=== PATIENT | female | born 1985 | race African-American/Black ===

== ENCOUNTER 2016-12-12 11:18 | Emergency (ER) | payer OTHER ==
[2016-12-12 11:44] VITALS: BP 129/81
== END 2016-12-12 13:05 | disposition left against medical advice (07) ==
LOC: ER 11:18
DX: Z53.21 Procedure and treatment not carried out due to patient leaving prior to being seen by health care provider (principal)

== ENCOUNTER 2017-03-21 12:48 | Emergency (ER) | payer OTHER ==
[2017-03-21 12:55] VITALS: BP 127/61
--- NOTE | 2017-03-21 13:11 | ER Document Report ---
ED Medical Screen (RME) - General Chief Complaint: Vaginal Discharge Stated Complaint: WEAK,ABDOMINAL PAIN Time Seen by Provider: 03/21/17 13:09 Mode of Arrival: Ambulatory Information source: Patient TRAVEL OUTSIDE OF THE [place] IN LAST 30 DAYS: No - HPI Patient complains to provider of: weak, vaginal d/c Onset: Yesterday - pt with c/o weakness, dysuria and vaginal d/c for the past 2 days. - Related Data Allergies/Adverse Reactions: Cat/Feline Product Derivatives * [Cat/Feline Product Derivatives] Allergy ( Severe, Verified 03/21/17 12:51) Respiratory distress grass pollen-orchard grass, standard [grass pollen-orchard grass,std] Allergy ( Severe, Verified 03/21/17 12:51) Respiratory distress tree nut [Tree Nut] Allergy (Severe, Verified 03/21/17 12:51) Respiratory distress No Known Drug Allergies Allergy (Verified 03/21/17 12:51) dogs Allergy (Severe, Uncoded 03/21/17 12:51) Respiratory distress pecan trees Allergy (Severe, Uncoded 03/21/17 12:51) Respiratory distress Past Medical History - Social History Frequency of alcohol use: Occasional Drug Abuse: None Pulmonary Medical History: Reports: Hx Asthma Renal/ Medical History: Denies: Hx Peritoneal Dialysis Past Surgical History: Reports: Hx Orthopedic Surgery - left knee x2 - Immunizations Hx Diphtheria, Pertussis, Tetanus Vaccination: Yes Physical Exam - Vital signs Vitals: Temp Pulse Resp BP Pulse Ox 98.2 F 82 20 127/61 H 100 03/21/17 12:54 03/21/17 12:54 03/21/17 12:54 03/21/17 12:54 03/21/17 12:54 Course - Vital Signs Vital signs: Temp Pulse Resp BP Pulse Ox 98.2 F 82 20 127/61 H 100 03/21/17 12:54 03/21/17 12:54 03/21/17 12:54 03/21/17 12:54 03/21/17 12:54
[2017-03-21 14:07] LABS: APPEARANCE,URINE SLIGHTLY-CLOUDY; BILIRUBIN,URINE NEGATIVE (NEGATIVE); COLOR,URINE YELLOW; GLUCOSE, URINE NEGATIVE (NEGATIVE); KETONES,URINE NEGATIVE (NEGATIVE); LEUKOCYTE ESTERASE,URINE LARGE (NEGATIVE); NITRITE,URINE NEGATIVE (NEGATIVE); PROTEIN,URINE NEGATIVE (NEGATIVE); URINE SPECIFIC GRAVITY 1.023; UROBILINOGEN,URINE NEGATIVE mg/dL (<2.0)
[2017-03-21 14:37] LABS: ABSOLUTE BASOPHILS # (AUTO) 0.1 10^3/uL (0.0-0.2); ABSOLUTE EOSINOPHILS # (AUTO) 0.3 10^3/uL (0.0-0.6); ABSOLUTE LYMPHOCYTES (AUTO) 2.6 10^3/uL (0.5-4.7); ABSOLUTE MONOCYTES (AUTO) 0.5 10^3/uL (0.1-1.4); ABSOLUTE NEUT (AUTO) 7.9 10^3/uL (1.7-8.2); BASOPHILS % (AUTO) 0.8 % (0-2); EOSINOPHILS % (AUTO) 2.4 % (0-6); HEMATOCRIT 37.7 % (36.0-47.0); HEMOGLOBIN 12.4 g/dL (12.0-15.5); LYMPHOCYTES % (AUTO) 22.9 % (13-45); MEAN CORPUSCULAR HEMOGLOBIN 26.1 pg (27.0-33.4); MEAN CORPUSCULAR HGB CONC 32.8 g/dL (32.0-36.0); MEAN CORPUSCULAR VOLUME 80 fl (80-97); MONOCYTES % (AUTO) 4.5 % (3-13); PLATELET COUNT 340 10^3/uL (150-450); RED BLOOD COUNT 4.73 10^6/uL (3.72-5.28); RED CELL DISTRIBUTION WIDTH 15.1 % (11.5-14.0); SEGMENTED NEUTROPHILS % (AUTO) 69.4 % (42-78); TOTAL CELLS COUNTED % (AUTO) 100 %; WHITE BLOOD COUNT 11.4 10^3/uL (4.0-10.5)
--- NOTE | 2017-03-21 14:40 | ER Document Report ---
ED GI/ - General Chief Complaint: Vaginal Discharge Stated Complaint: WEAK,ABDOMINAL PAIN Time Seen by Provider: 03/21/17 13:09 Mode of Arrival: Ambulatory Notes: Patient says she has been feeling weak for the past couple of days. Has noted some vaginal irritation and itching today which is comfortable. Denies any symptoms typical of a UTI such as burning or frequency or blood in the urine. Does not get a lot of urine infections. Denies any nausea or vomiting or diarrhea. Denies any fever. LMP 2-1/2-3 months ago. Has a control implant. No abdominal surgeries. Not on any [facility] prescription medications, such as for hypertension or diabetes. TRAVEL OUTSIDE OF THE [place] IN LAST 30 DAYS: No - Related Data Allergies/Adverse Reactions: Cat/Feline Product Derivatives * [Cat/Feline Product Derivatives] Allergy ( Severe, Verified 03/21/17 12:51) Respiratory distress grass pollen-orchard grass, standard [grass pollen-orchard grass,std] Allergy ( Severe, Verified 03/21/17 12:51) Respiratory distress tree nut [Tree Nut] Allergy (Severe, Verified 03/21/17 12:51) Respiratory distress No Known Drug Allergies Allergy (Verified 03/21/17 12:51) dogs Allergy (Severe, Uncoded 03/21/17 12:51) Respiratory distress pecan trees Allergy (Severe, Uncoded 03/21/17 12:51) Respiratory distress Past Medical History - General Information source: Patient - Social History Smoking Status: Never Smoker Frequency of alcohol use: Occasional Drug Abuse: None Family History: Reviewed & Not Pertinent Patient has suicidal ideation: No Patient has homicidal ideation: No Pulmonary Medical History: Reports: Hx Asthma Past Surgical History: Reports: Hx Orthopedic Surgery - left knee x2 - Immunizations Hx Diphtheria, Pertussis, Tetanus Vaccination: Yes Review of Systems - Review of Systems Notes: CONSTITUTIONAL : Denies fever. CARDIOVASCULAR: Denies chest pain. RESPIRATORY: Denies cough, chest congestion, or shortness of breath. GASTROINTESTINAL: Denies abdominal pain or nausea, vomiting, or diarrhea. GENITOURINARY: Denies difficulty or painful urinating, urinary frequency, blood in urine. See HPI. Physical Exam - Vital signs Vitals: Temp Pulse Resp BP Pulse Ox 98.2 F 82 20 127/61 H 100 03/21/17 12:54 03/21/17 12:54 03/21/17 12:54 03/21/17 12:54 03/21/17 12:54 Interpretation: Normal - Notes Notes: PHYSICAL EXAMINATION: GENERAL: Well-appearing, no acute distress. Signs are all normal. HEAD: Atraumatic, normocephalic. NECK: Normal range of motion, supple. LUNGS: Breath sounds clear and equal bilaterally. HEART: Regular rate and rhythm without murmurs heard. ABDOMEN: Soft, nontender. No guarding or rebound or masses felt. - Genitourinary External exam: Normal. No: Lesions, Vesicles Speculum exam: Cervix closed, Vaginal discharge - Mild, white Vaginal bleeding: None Bimanuel exam: No: Cervical motion tender, Adnexal mass, Adnexal tenderness Course - Re-evaluation Re-evalutation: 03/21/17 19:52 Patient's labs came back positive for trichomonas. Clinically, I think the patient has a yeast discharge as well. Patient did not want to wait until her labs had all come back. I just noted that her PCR is positive for chlamydia. I will call or have someone call her tomorrow morning to call in a prescription to treat that finding. Patient was given a gram of Rocephin IM to treat what appears to be a UTI. I ordered a culture of her urine. She was given a prescription for Macrobid 100 mg twice a day for 7 days. - Vital Signs Vital signs: Temp Pulse Resp BP Pulse Ox 98.2 F 82 20 127/61 H 100 03/21/17 12:54 03/21/17 12:54 03/21/17 12:54 03/21/17 12:54 03/21/17 12:54 - Laboratory Result Diagrams: 03/21/17 14:28 03/21/17 14:28 Laboratory results interpreted by me: 03/21/17 03/21/17 03/21/17 13:35 14:28 15:10 WBC 11.4 H MCH 26.1 L RDW 15.1 H Ur Leukocyte Esterase LARGE H Urine Ascorbic Acid 20 H Chlamydia DNA (PCR) DETECTED H Discharge - Discharge Clinical Impression: UTI (urinary tract infection), Vaginitis Condition: Stable Disposition: HOME, SELF-CARE Additional Instructions: VAGINITIS: Your exam shows that you have vaginitis, a vaginal infection. The infection can be caused by a many different organisms, including trichomonas or Gardnerella. The usual symptoms are vaginal irritation and discharge. The treatment is usually antibiotics such as Flagyl. Laboratory tests can determine which germ is responsible. Use the medication as prescribed. Because this infection can be transmitted sexually, your sexual partner may need to be checked and treated also. If your physician has not discussed this with you, please check before resuming sexual relations. If a culture shows gonorrhea or chlamydia, the infection must be reported to the health department. Call the doctor if you develop pelvic pain, fever, or problems with urination, or if you don't improve as expected. VAGINOSIS, BACTERIAL: Your exam shows you have bacterial vaginosis. This condition is due to an overgrowth of bacteria in the vagina. Symptoms may include vaginal itching or pain, a smelly discharge, and sometimes burning with urination. Normally this is not transmitted by sexual contact. Vaginosis can be treated with oral or topical antibiotics. Metronidazole ( Flagyl) pills are usually effective. Topical vaginal creams include Cleocin and Metro-Gel. You should avoid sexual contact until your symptoms are all better. Call the doctor if you develop pelvic pain, fever, or problems with urination, or if you don't improve as expected. VAGINAL TRICHOMONAS INFECTION: Trichomoniasis is infection of the vagina or male genital tract with Trichomonas vaginalis. It can be asymptomatic or cause urethritis, vaginitis, or occasionally cystitis, epididymitis, or prostatitis. Diagnosis is by microscopic examination of vaginal or prostatic secretions or by urethral culture. Patients and sex partners are treated with metronidazole. T. vaginalis is a flagellated, sexually transmitted protozoan that more often infects women (about 20% of women of reproductive age) than men. Infection may be asymptomatic in either sex, but asymptomatic is the rule for men. In men, protozoa may persist for long periods in the tract without causing symptoms; thus, protozoa may be transmitted unwittingly to sex partners. Trichomoniasis may account for up to 5% of nongonococcal, nonchlamydial urethritis in men in some areas. Co-infection with gonorrhea and other sexually transmitted diseases (STDs) is common. In women, symptoms range from none to copious, yellow-green, frothy vaginal discharge with soreness of the vulva and perineum, dyspareunia, and dysuria. Asymptomatic infection may become symptomatic at any time as the vulva and perineum become inflamed and edema develops in the labia. The vaginal burroughs and surface of the cervix may have punctate, red "strawberry" spots. Urethritis and possibly cystitis may also occur. Men are usually asymptomatic; however, sometimes urethritis results in a discharge that may be transient, frothy, or purulent or that causes dysuria and frequency, usually early in the morning. Often, urethritis is mild and causes only minimal urethral irritation and occasional moisture at the urethral meatus , under the foreskin, or both. Epididymitis and prostatitis are rare complications. Trichomoniasis is suspected in women with vaginitis, in men with urethritis , and in their sex partners. Suspicion is high if symptoms persist after patients have been evaluated and treated for other infections such as gonorrhea and chlamydial, mycoplasmal, and ureaplasmal infections. In women, diagnosis is based on clinical criteria and in-office testing. The saline wet mount is examined microscopically as soon as possible to detect trichomonads.In men, microscopy of urine is insensitive, although occasionally organisms are visible in a first-voided morning specimen or a centrifuged specimen. Cultures of urine and urethral swabs are more sensitive. As with diagnosis of any STD, patients with trichomoniasis should be tested to exclude other common STDs such as gonorrhea and chlamydial infection. Metronidazole or tinidazole 2 g po in a single dose cures up to 95% of women if sex partners are treated simultaneously. Effectiveness of single-dose regimens in men is not as clear, so treatment is typically with metronidazole or tinidazole 500 mg bid for 5 to 7 days. Sex partners should be screened and treated for trichomoniasis and other STDs. If poor adherence to follow-up is likely, treatment can be initiated in sex partners of patients with documented trichomoniasis without confirming the diagnosis in the partner. ANTIBIOTIC THERAPY: You have been given an antibiotic prescription. It's important that you take all the medication, unless instructed otherwise by your physician. Failure to complete the entire course can result in relapse of your condition. Common side effects of antibiotics include nausea, intestinal cramping, or diarrhea. Women may develop vaginal yeast infections, and babies can get yeast (thrush) in the mouth following the use of antibiotics. Contact your physician if you develop significant side effects from this medication. Allergy to this antibiotic can result in hives, wheezing, faintness, or itching. If symptoms of allergy occur, stop the medication and call the doctor. METRONIDAZOLE: Metronidazole (Flagyl) has been prescribed. This medication is used to kill a type of bacteria called anaerobes, and protozoan parasites such as trichomonas and Giardia. Flagyl often causes a metallic taste in the mouth and mild nausea. Do not use alcohol in any form with Flagyl (including alcohol in medication elixirs). Flagyl interacts with alcohol to cause flushing, palpitations, headache, stomach cramps, and vomiting. Do not use Flagyl if you are taking Antabuse (disulfiram). Call the doctor at once if you develop rash, shortness of breath, itching, or lightheadedness. FLUCONAZOLE: Fluconazole (Diflucan) is an antifungal drug. It is useful for serious fungal infections, but is also excellent for oral or vaginal yeast infections. Diflucan interacts with some medicines. This is a concern if you are taking anticoagulants (such as Coumadin), phenytoin (Dilantin), cyclosporin, or oral hypoglycemics (such as tolbutamide, Orinase, glipizide, Glucotrol, glyburide, DiaBeta, Glynase, and Micronase). Be sure the doctor knows if you are taking one of these medicines. We don't know how Diflucan affects . If you are planning to become , discuss this with your doctor. Diflucan has few side effects. Minor side effects may include nausea, headache, or diarrhea. Call the doctor if you develop a skin rash, shortness of breath, or other new symptoms. URINARY TRACT INFECTION: Your evaluation indicates that you have a urinary tract infection. This is due to germs growing in the bladder. This is a common problem. This infection usually responds quickly to antibiotics. Your antibiotic should be taken exactly as prescribed. Drink plenty of fluids -- three to four quarts a day. Occasionally, a bladder anesthetic will be prescribed to help stop the feeling of urgency until the antibiotic has a chance to clear the infection. This may cause your urine to be dark orange. Certain urine infections require a culture. If the doctor obtained a culture, the results will be back in two days. You should call to see if a change in treatment is needed. A repeat urinalysis after you finish treatment is often recommended. The physician will let you know if further testing is required. Call the doctor if you develop fever, chills, flank pain, inability to urinate, or blood in the urine. Rocephin You have been given an injection of an antibiotic called Rocephin ( ceftriaxone). Sometimes the injection must be combined with antibiotic pills. For some infections, such as an uncomplicated ear infection, Rocephin provides all the antibiotic that's needed. The antibiotic will be in your body for about two days. For serious infections, we usually repeat doses of Rocephin daily. Side effects are very unusual following a shot. Women may develop vaginal yeast infections, and babies can get yeast (thrush) in the mouth following the use of antibiotics. Contact your physician if you have symptoms with this medication. Allergy to this antibiotic can result in hives, wheezing, faintness, or itching. If symptoms of allergy occur, call the doctor at once. NITROFURANTOIN (MACRODANTIN, MACROBID): You have received a prescription for nitrofurantoin (Macrodantin). This antibiotic is used for urinary tract infections. Women who are or nursing should notify the physician before taking this medicine. If you have ever had a problem caused by this medication in the past, be sure the physician is aware of it. Common side effects of this medicine include nausea, vomiting, or decreased appetite. Notify your physician if these side effects become severe. Immediately stop this medicine and call the physician if you develop cough , shortness of breath, chest pain, weakness, jaundice (yellow color of the skin and whites of the eyes), or a skin rash. FOLLOW-UP CARE: If you have been referred to a physician for follow-up care, call the physician s office for an appointment as you were instructed or within the next two days. If you experience worsening or a significant change in your symptoms, notify the physician immediately or return to the Emergency Department at any time for re-evaluation. Prescriptions: Metronidazole 500 mg PO BID #14 tablet Nitrofurantoin Monohyd/M-Cryst [Macrobid 100 mg Capsule] 100 mg PO BID #14 capsule Forms: Return to Work
[2017-03-21 14:52] LABS: ALANINE AMINOTRANSFERASE 28 U/L (9-52); ALBUMIN 4.2 g/dL (3.5-5.0); ALKALINE PHOSPHATASE 64 U/L (38-126); ANION GAP 10 (5-19); ASPARTATE AMINO TRANSFERASE 18 U/L (14-36); BILIRUBIN,DIRECT 0.2 mg/dL (0.0-0.4); BILIRUBIN,TOTAL 0.2 mg/dL (0.2-1.3); BLOOD UREA NITROGEN 11 mg/dL (7-20); CALCIUM 9.9 mg/dL (8.4-10.2); CARBON DIOXIDE 28 mmol/L (22-30); CHLORIDE 103 mmol/L (98-107); GLUCOSE 89 mg/dL (75-110); POTASSIUM 4.1 mmol/L (3.6-5.0); SODIUM 141.2 mmol/L (137-145); TOTAL PROTEIN 7.6 g/dL (6.3-8.2)
[2017-03-21 15:27] LABS: EPITHELIALS (WET MOUNT) 3+ EPITHELIALS SEEN; RBCS (WET MOUNT) 1+ RBCS SEEN; T.VAGINALIS (WET MOUNT) TRICHOMONAS SEEN; WBCS (WET MOUNT) 3+ WBCS SEEN; YEAST (WET MOUNT) NO YEAST SEEN
[2017-03-21] MEDS ORDERED: CEFTRIAXONE INJ 1000 MG VIAL IM ONE (15:30)
[2017-03-21] MEDS ORDERED: LIDOCAINE 1% INJ-PF (10 MG/ML) 30 ML SDV INJ ONE (15:30)
[2017-03-21] MEDS ORDERED: FLUCONAZOLE 100 MG TABLET PO ONE (16:26)
[2017-03-21 17:00] LABS: CHLAM PCR DETECTED (NOT DETECT); GON PCR NOT DETECTED (NOT DETECT)
== END 2017-03-21 16:40 | disposition home or self-care (01) ==
LOC: ER 12:48
DX: N39.0 Urinary tract infection, site not specified (principal); A59.01 Trichomonal vulvovaginitis; A56.02 Chlamydial vulvovaginitis; R53.1 Weakness; J45.909 Unspecified asthma, uncomplicated; Z97.5 Presence of (intrauterine) contraceptive device; Z91.048 Other nonmedicinal substance allergy status; Z91.018 Allergy to other foods
CPT/HCPCS: 99283; 96372; 36415; 87086; 87210; 85025; 81025; 80053; 81001; 87491; 87591; J3490; J0696

== ENCOUNTER 2017-07-06 20:06 | Emergency (ER) | payer OTHER ==
[2017-07-06] MEDS ORDERED: ALBUTEROL SULFATE HFA (90 MCG/PUFF) 8 GM MDI (1 MDI/ER DISP) IH ONE (21:55)
[2017-07-06 22:32] LABS: A TYPE INFLUENZA AG NEGATIVE (NEGATIVE); B INFLUENZA AG NEGATIVE (NEGATIVE)
--- NOTE | 2017-07-06 23:04 | ER Document Report ---
ED General - General Chief Complaint: Flu Symptoms Stated Complaint: BREATHING DIFFICULTY Time Seen by Provider: 07/06/17 21:45 Mode of Arrival: Ambulatory Information source: Patient TRAVEL OUTSIDE OF THE [place] IN LAST 30 DAYS: No - HPI Notes: Patient presents with report of history of asthma and uses albuterol, but is currently running out. The patient states that she has had recent cough congestion runny nose and wheezing. The cough is nonproductive, but she questions having a low-grade fever earlier. She denies any chest pain or nausea or vomiting. No concern for being . No back pain or dysuria. Previously the patient was on Flonase and Cinda in the past. - Related Data Allergies/Adverse Reactions: Cat/Feline Product Derivatives * [Cat/Feline Product Derivatives] Allergy ( Severe, Verified 03/21/17 12:51) Respiratory distress grass pollen-orchard grass, standard [grass pollen-orchard grass,std] Allergy ( Severe, Verified 03/21/17 12:51) Respiratory distress tree nut [Tree Nut] Allergy (Severe, Verified 03/21/17 12:51) Respiratory distress No Known Drug Allergies Allergy (Verified 03/21/17 12:51) dogs Allergy (Severe, Uncoded 03/21/17 12:51) Respiratory distress pecan trees Allergy (Severe, Uncoded 03/21/17 12:51) Respiratory distress Past Medical History - General Information source: Patient - Social History Smoking Status: Never Smoker Frequency of alcohol use: None Drug Abuse: None Lives with: Family Family History: Reviewed & Not Pertinent Patient has suicidal ideation: No Patient has homicidal ideation: No Pulmonary Medical History: Reports: Hx Asthma Renal/ Medical History: Denies: Hx Peritoneal Dialysis Past Surgical History: Reports: Hx Orthopedic Surgery - left knee x2 - Immunizations Hx Diphtheria, Pertussis, Tetanus Vaccination: Yes Review of Systems - Review of Systems Notes: REVIEW OF SYSTEMS: CONSTITUTIONAL questions having a fever earlier EENT: Denies eye, ear, throat, or mouth pain or symptoms. Denies difficulty swallowing. CARDIOVASCULAR: Denies chest pain. Denies palpitations or racing or irregular heart beat. Denies ankle edema. RESPIRATORY Denies shortness of breath. GASTROINTESTINAL: Denies abdominal pain or distention. Denies nausea, vomiting , or diarrhea. Denies blood in vomitus, stools, or per rectum. Denies black, tarry stools. Denies constipation. GENITOURINARY: Denies difficulty urinating, painful urination, burning, frequency, blood in urine, or discharge. FEMALE GENITOURINARY: Denies vaginal bleeding, heavy or abnormal periods, irregular periods. Denies vaginal discharge or odor. MUSCULOSKELETAL: Denies back or neck pain or stiffness. Denies joint pain or swelling. SKIN: Denies rash, lesions or sores. HEMATOLOGIC : Denies easy bruising or bleeding. LYMPHATIC: Denies swollen, enlarged glands. NEUROLOGICAL: Denies confusion or altered mental status. Denies passing out or loss of consciousness. Denies dizziness or lightheadedness. Denies headache. Denies weakness or paralysis or loss of use of either side. Denies problems with gait or speech. Denies sensory loss, numbness, or tingling. Denies seizures. PSYCHIATRIC: Denies anxiety or stress. Denies depression, suicidal ideation, or homicidal ideation. ALL OTHER SYSTEMS REVIEWED AND NEGATIVE. Dictation was performed using [employer] voice recognition software Physical Exam - Vital signs Vitals: Temp Pulse Resp BP Pulse Ox 98.8 F 92 20 140/83 H 100 07/06/17 20:34 07/06/17 20:34 07/06/17 20:34 07/06/17 20:34 07/06/17 20:34 - Notes Notes: PHYSICAL EXAMINATION: GENERAL: Well-appearing, well-nourished and in no acute distress. HEAD: Atraumatic, normocephalic. EYES: Pupils equal round and reactive to light, extraocular movements intact, conjunctiva are normal. ENT: Moist mucous membranes. Nasal turbinate swelling. NECK: Normal range of motion, supple without lymphadenopathy LUNGS: Mild anterior wheeze. No rales. No accessory muscle use. HEART: Regular rate and rhythm without murmurs ABDOMEN: Soft, nontender, nondistended abdomen. No guarding, no rebound. No masses appreciated. Female : deferred Musculoskeletal: Normal range of motion, no pitting or edema. No cyanosis. NEUROLOGICAL: Cranial nerves grossly intact. Normal speech, normal gait. Normal sensory, motor exams PSYCH: Normal mood, normal affect. SKIN: Warm, Dry, normal turgor, no rashes or lesions noted. Course - Re-evaluation Re-evalutation: 07/06/17 23:04 Patient given albuterol metered-dose inhaler. Flu test was negative. No clinical suggestion for pneumonia or hypoxia. 07/06/17 23:04 - Vital Signs Vital signs: Temp Pulse Resp BP Pulse Ox 98.8 F 92 20 140/83 H 100 07/06/17 20:34 07/06/17 20:34 07/06/17 20:34 07/06/17 20:34 07/06/17 20:34 Discharge - Discharge Clinical Impression: Asthma, acute Upper respiratory infection Qualifiers: URI type: unspecified URI Qualified Code(s): J06.9 - Acute upper respiratory infection, unspecified Allergic rhinitis Qualifiers: Allergic rhinitis trigger: unspecified Allergic rhinitis seasonality: seasonal Qualified Code(s): J30.2 - Other seasonal allergic rhinitis Condition: Stable Disposition: HOME, SELF-CARE Instructions: Upper Respiratory Illness ([facility]), Viral Syndrome ([facility]), Asthma ( [facility]), Family Physicians / Practices Additional Instructions: Take Zithromax antibiotic if you develop fever or symptoms worsen. Prescriptions: Albuterol Sulfate [Proair HFA Inhalation Aerosol 8.5 gm MDI] 2 puff IH Q4H PRN # 1 mdi PRN Reason: Albuterol Sulfate [Albuterol Sulfate 2.5mg/3 mL] 1 vial IH Q4 PRN #30 vial PRN Reason: Azithromycin [Zithromax 250 mg Tablet] 250 mg PO ASDIR PRN #6 tablet PRN Reason: Fluticasone Propionate [Flonase Nasal Dermott 50 Mcg/Dermott 16 gm] 2 sprays NASL Q12 #1 inhaler
[2017-07-07 00:07] VITALS: BP 136/83
== END 2017-07-06 22:20 | disposition home or self-care (01) ==
LOC: ER 20:06
DX: J45.909 Unspecified asthma, uncomplicated (principal); J06.9 Acute upper respiratory infection, unspecified; J30.2 Other seasonal allergic rhinitis; Z91.018 Allergy to other foods
CPT/HCPCS: 99283; 87804; J3490

== ENCOUNTER 2018-03-23 10:47 | Emergency (ER) | payer BC, OTHER ==
[2018-03-23] MEDS ORDERED: LIDOCAINE 2% VISCOUS SOLN 20 ML UDCUP PO ONE (11:06)
[2018-03-23] MEDS ORDERED: DEXAMETHASONE 4 MG TABLET PO ONE (11:06)
--- NOTE | 2018-03-23 11:07 | ER Document Report ---
HPI - HPI Patient complains to provider of: Sore throat Time Seen by Provider: 03/23/18 11:05 Onset/Duration: Persistent Quality of pain: Achy Pain Level: 3 Context: Patient presents complaining of sore throat with voice hoarseness for the past 2 weeks. Patient denies any fever. Patient does complain of some diarrhea symptoms. Patient does report recently giving her partner oral sex and is concerned that she may have been exposed to possible STD. Associated Symptoms: Sore throat. denies: Nonproductive cough, Fever Exacerbated by: Denies Relieved by: Denies Similar symptoms previously: No Recently seen / treated by doctor: No - ROS ROS below otherwise negative: Yes Systems Reviewed and Negative: Yes All other systems reviewed and negative - CONSTITUTIONAL Constitutional: DENIES: Fever - EENT EENT: REPORTS: Sore Throat - RESPIRATORY Respiratory: DENIES: Coughing - REPRODUCTIVE Reproductive: DENIES: : - DERM Skin Problems: None Past Medical History - General Information source: Patient - Social History Smoking Status: Never Smoker Frequency of alcohol use: None Drug Abuse: None Occupation: [employer] Family History: Reviewed & Not Pertinent Pulmonary Medical History: Reports: Hx Asthma Renal/ Medical History: Denies: Hx Peritoneal Dialysis Past Surgical History: Reports: Hx Orthopedic Surgery - left knee x2 - Immunizations Hx Diphtheria, Pertussis, Tetanus Vaccination: Yes Vertical Provider Document - CONSTITUTIONAL Agree With Documented VS: Yes - Vital signs reviewed from triage sheet Exam Limitations: No Limitations General Appearance: WD/WN, No Apparent Distress - INFECTION CONTROL TRAVEL OUTSIDE OF THE [place] IN LAST 30 DAYS: No - HEENT HEENT: Atraumatic, Normocephalic, Pharyngeal Tenderness. negative: Pharyngeal Exudate, Pharyngeal Erythema, Tympanic Membrane Red, Tympanic Membrane Bulging - NECK Neck: Lymphadenopathy-Left, Lymphadenopathy-Right - RESPIRATORY Respiratory: Breath Sounds Normal, No Respiratory Distress - CARDIOVASCULAR Cardiovascular: Regular Rate, Regular Rhythm, No Murmur - BACK Back: Normal Inspection - MUSCULOSKELETAL/EXTREMETIES Musculoskeletal/Extremeties: MAEW - NEURO Level of Consciousness: Awake, Alert, Appropriate Motor/Sensory: No Motor Deficit - DERM Integumentary: Warm, Dry, No Rash Course - Laboratory Laboratory results interpreted by me: 03/23/18 11:51 Labs- Entire Visit 03/23/18 03/23/18 11:04 11:15 Monotest NEGATIVE Group A Strep Rapid NEGATIVE Discharge - Discharge Clinical Impression: Sore throat, Voice hoarseness, History of gastroesophageal reflux (GERD) Condition: Stable Disposition: HOME, SELF-CARE Instructions: Reflux Disease (GERD) ([facility]), Sore Throat ([facility]) Additional Instructions: Return immediately for any new or worsening symptoms Followup with your primary care provider, call tomorrow to make a followup appointment Cultures are pending, we will call if you need any different treatment Prescriptions: Naproxen [Naprosyn 250 Nmg Tablet] 1 tab PO BID #14 tablet Omeprazole Magnesium [Prilosec Otc] 20 mg PO DAILY #15 tablet.dr Forms: Return to Work Referrals: VALERIE SEVILLA, [Primary Care Provider] - Follow up as needed
== END 2018-03-23 12:01 | disposition home or self-care (01) ==
LOC: ER 10:47
DX: J02.9 Acute pharyngitis, unspecified (principal); R49.0 Dysphonia; R59.0 Localized enlarged lymph nodes; J45.909 Unspecified asthma, uncomplicated; Z20.2 Contact with and (suspected) exposure to infections with a predominantly sexual mode of transmission; Z87.19 Personal history of other diseases of the digestive system
CPT/HCPCS: 99283; 36415; 87070; 87880; 87077; 86308; J3490

== ENCOUNTER 2019-12-08 11:34 | Emergency (ER) | payer BC ==
[2019-12-08] MEDS ORDERED: IBUPROFEN 600 MG TABLET PO ONE (13:06)
--- NOTE | 2019-12-08 14:35 | ER Document Report ---
HPI - HPI Patient complains to provider of: Left knee pain is Time Seen by Provider: 12/08/19 13:02 Notes: 33-year-old female with past medical history for patellar dislocation, knee surgery with fixation to stabilize her patella, to the ED with complaints of left knee pain that started last night. She states that she had internal fixation of her patella in 2013 because she kept redislocating. She states that she is done pretty well with the knee since then. However last night as she was turning over in the bed she felt the knee dislocate. She was able to straighten it but today she has swelling and pain. She denies any other injuries. She does not currently have an orthopedist. The orthopedist who put the screws in is in [place] through [place]. She thinks it is a Dr. Clemente Villanueva. - ROS Systems Reviewed and Negative: Yes All other systems reviewed and negative - CONSTITUTIONAL Constitutional: DENIES: Fever, Chills - EENT EENT: DENIES: Sore Throat, Ear Pain - NEURO Neurology: DENIES: Headache - CARDIOVASCULAR Cardiovascular: DENIES: Chest pain - RESPIRATORY Respiratory: DENIES: Trouble Breathing, Coughing - GASTROINTESTINAL Gastrointestinal: DENIES: Abdominal Pain, Nausea, Patient vomiting, Diarrhea, Constipation - MUSCULOSKELETAL Musculoskeletal: REPORTS: Extremity pain Notes: left knee pain - DERM Skin Color: Normal Skin Problems: None Past Medical History - General Information source: Patient - Social History Smoking Status: Never Smoker Frequency of alcohol use: None Drug Abuse: None Family History: Reviewed & Not Pertinent Pulmonary Medical History: Reports: Hx Asthma Renal/ Medical History: Denies: Hx Peritoneal Dialysis Past Surgical History: Reports: Hx Orthopedic Surgery - left knee x2 - Immunizations Hx Diphtheria, Pertussis, Tetanus Vaccination: Yes Vertical Provider Document - CONSTITUTIONAL Agree With Documented VS: Yes Exam Limitations: No Limitations General Appearance: WD/WN, Mild Distress Notes: Mild pain distress. Limping on the left knee. - INFECTION CONTROL TRAVEL OUTSIDE OF THE [place] IN LAST 30 DAYS: No - HEENT HEENT: Atraumatic, Normocephalic, PERRLA - NECK Neck: Normal Inspection, Supple - RESPIRATORY Respiratory: Breath Sounds Normal, No Respiratory Distress. negative: Rales, Rhonchi, Wheezing - CARDIOVASCULAR Cardiovascular: Regular Rate, Regular Rhythm, No Murmur - GI/ABDOMEN Gastrointestinal: Abdomen Soft, Abdomen Non-Tender - BACK Back: Normal Inspection - MUSCULOSKELETAL/EXTREMETIES Notes: Patient is limping on the left knee. There is tenderness to palpation the suprapatellar region as well as the lateral aspect of the knee. Mild edema. No erythema. Negative anterior drawer and negative valgus varus stress testing. Patella does not seem to be high riding. Nontender to palpation over the left ankle and hip. Flexion and extension increase the pain in the left knee. - NEURO Level of Consciousness: Awake, Alert, Appropriate Motor/Sensory: No Motor Deficit, No Sensory Deficit - DERM Integumentary: Warm, Dry, No Rash Course - Re-evaluation Re-evalutation: 12/08/19 15:00 Impression: Left knee injury. X-ray shows hardware that seems to be intact. No fractures visualized. We will go ahead and place an immobilizer and on crutches and get her over to see the orthopedist. Patient agrees with plan. Will send home with Radha. - Vital Signs Vital signs: Temp Pulse Resp BP Pulse Ox 97.9 F 77 16 137/85 H 98 12/08/19 12:33 12/08/19 12:33 12/08/19 12:33 12/08/19 12:33 12/08/19 12:33 - Diagnostic Test Radiology results interpreted by me: 12/08/19 15:00 No acute fracture, hardware seems to be intact. Procedures - Immobilization Left Knee Time completed: 15:01 Pre-Proc Neuro Vasc Exam: Normal Immobilizer type: Knee immobilizer Performed by: PCT Post-Proc Neuro Vasc Exam: Normal Alignment checked and good: Yes Discharge - Discharge Clinical Impression: Left knee injury Qualifiers: Encounter type: initial encounter Qualified Code(s): S89.92XA - Unspecified injury of left lower leg, initial encounter Left knee pain Qualifiers: Chronicity: acute Qualified Code(s): M25.562 - Pain in left knee Condition: Stable Disposition: HOME, SELF-CARE Instructions: Knee Immobilizing Splint ([facility]) Additional Instructions: Follow-up with orthopedist without fail. Use knee immobilizer and crutches. Elevate the knee and ice it 3 times a day for 20 minutes at a time. Take pain medicine as prescribed. Return if worsening symptoms. Your x-ray today shows intact hardware however you will need to see an orthopedist for further evaluation of your knee. Failure to follow-up with the orthopedist could lead to permanent pain, dysfunction, gait change. Prescriptions: Diclofenac Sodium [Voltaren 50 Mg Tablet.] 50 mg PO BID #20 tablet. Referrals: VALERIE SEVILLA DO [Primary Care Provider] - Follow up in 1 week CAROLIN MARTIN DO [ACTIVE STAFF] - Follow up in 3-5 days (for ortho follow up)
--- NOTE | 2019-12-08 15:00 | RADIOLOGY REPORT (SQ) ---
EXAM DESCRIPTION: KNEE LEFT 3 VIEWS IMAGES COMPLETED DATE/TIME: 12/08/2019 2:33 pm REASON FOR STUDY: left knee pain COMPARISON: None. NUMBER OF VIEWS: Three views. TECHNIQUE: AP, lateral, and sunrise patella radiographic images acquired of the left knee. LIMITATIONS: None. FINDINGS: MINERALIZATION: Normal. BONES: No acute fracture dislocation. Proximal tibia anterior cancellous screw hardware. JOINT: No effusion. SOFT TISSUES: No soft tissue swelling. No radiopaque foreign body. Obesity. OTHER: No other significant finding. IMPRESSION: Proximal tibia surgical hardware without evidence of acute bony abnormality of the left knee. TECHNICAL DOCUMENTATION: JOB ID: [id number] 2010 [employer]- All Rights Reserved Reading location - IP/workstation name: [email or web address]
[2019-12-08 15:06] VITALS: BP 147/94
== END 2019-12-08 15:05 | disposition home or self-care (01) ==
LOC: ER 11:34
DX: S89.92XA Unspecified injury of left lower leg, initial encounter (principal); X58.XXXA Exposure to other specified factors, initial encounter; M25.562 Pain in left knee; Z98.890 Other specified postprocedural states; J45.909 Unspecified asthma, uncomplicated
CPT/HCPCS: 99283

== ENCOUNTER 2020-01-08 19:45 | Observation (INO) | payer BC ==
--- NOTE | 2020-01-08 21:02 | ER Document Report ---
ED Medical Screen (RME) - General Chief Complaint: Shortness Of Breath Stated Complaint: SHORTNESS OF BREATH Time Seen by Provider: 01/08/20 20:55 Primary Care Provider: VALERIE SEVILLA DO [Primary Care Provider] - Follow up as needed Mode of Arrival: Ambulatory Information source: Patient Notes: Patient presents with 5-day history of chest pain. Patient states that the pain initially was resolved after taking Prilosec although has since returned. Patient states that she was diagnosed with Covid 4 days ago although has had symptoms for the past 9 days. Patient states she has had occasional difficulty taking a deep inspiration. Patient reports low-grade fever at home. Patient does have an underlying history of asthma and acid reflux. I have greeted and performed a rapid initial assessment of this patient. A comprehensive ED assessment and evaluation of the patient, analysis of test results and completion of the medical decision making process will be conducted by additional ED providers. TRAVEL OUTSIDE OF THE [place] IN LAST 30 DAYS: No - Related Data Allergies/Adverse Reactions: Cat/Feline Product Derivatives * [Cat/Feline Product Derivatives] Allergy (Severe, Verified 03/23/18 10:49) Respiratory distress grass pollen-orchard grass, standard [grass pollen-orchard grass,std] Allergy (Severe, Verified 03/23/18 10:49) Respiratory distress tree nut [Tree Nut] Allergy (Severe, Verified 03/23/18 10:49) Respiratory distress No Known Drug Allergies Allergy (Verified 03/23/18 10:49) dogs Allergy (Severe, Uncoded 03/23/18 10:49) Respiratory distress pecan trees Allergy (Severe, Uncoded 03/23/18 10:49) Respiratory distress Past Medical History Pulmonary Medical History: Reports: Hx Asthma Renal/ Medical History: Denies: Hx Peritoneal Dialysis Past Surgical History: Reports: Hx Orthopedic Surgery - left knee x2 - Immunizations Hx Diphtheria, Pertussis, Tetanus Vaccination: Yes Physical Exam - Vital signs Vitals: Temp Pulse Resp BP Pulse Ox 99.9 F 107 H 24 H 135/72 H 95 01/08/20 20:48 01/08/20 20:48 01/08/20 20:48 01/08/20 20:48 01/08/20 20:48 - Respiratory Respiratory status: No respiratory distress Breath sounds: Normal - Cardiovascular Rhythm: Tachycardia Heart sounds: S1 appreciated, S2 appreciated Course - Vital Signs Vital signs: Temp Pulse Resp BP Pulse Ox 99.9 F 107 H 24 H 135/72 H 95 01/08/20 20:48 01/08/20 20:48 01/08/20 20:48 01/08/20 20:48 01/08/20 20:48 Doctor's Discharge - Discharge Referrals: VALREIE SEVILLA, [Primary Care Provider] - Follow up as needed
[2020-01-08 23:07] LABS: ABSOLUTE LYMPHOCYTES (AUTO) 1.4 10^3/uL (0.5-4.7); ABSOLUTE MONOCYTES (AUTO) 0.4 10^3/uL (0.1-1.4); ABSOLUTE NEUT (AUTO) 5.2 10^3/uL (1.7-8.2); BASOPHILS % (AUTO) 0.7 % (0-2); EOSINOPHILS % (AUTO) 0.2 % (0-6); HEMATOCRIT 38.3 % (36.0-47.0); HEMOGLOBIN 12.8 g/dL (12.0-15.5); LYMPHOCYTES % (AUTO) 19.5 % (13-45); MEAN CORPUSCULAR HEMOGLOBIN 27.8 pg (27.0-33.4); MEAN CORPUSCULAR HGB CONC 33.5 g/dL (32.0-36.0); MEAN CORPUSCULAR VOLUME 83 fl (80-97); MONOCYTES % (AUTO) 5.2 % (3-13); PLATELET COUNT 276 10^3/uL (150-450); RED BLOOD COUNT 4.61 10^6/uL (3.72-5.28); RED CELL DISTRIBUTION WIDTH 14.1 % (11.5-14.0); SEGMENTED NEUTROPHILS % (AUTO) 74.4 % (42-78); TOTAL CELLS COUNTED % (AUTO) 100 %
--- NOTE | 2020-01-08 23:24 | RADIOLOGY REPORT (SQ) ---
CHEST X-RAY 1 VIEW on 01/08/2020 at 10:35 PM CLINICAL INDICATION: Chest pain, positive COVID 19 COMPARISON: None FINDINGS: The lungs are clear. Cardiac, hilar and mediastinal contours are within normal limits. Pulmonary vascularity is within normal limits. No bony abnormality is noted. IMPRESSION: No pulmonary opacities identified. Please note that chest radiographs have low sensitivity for subtle groundglass opacities.
[2020-01-08 23:26] LABS: ALBUMIN 4.1 g/dL (3.5-5.0); ALKALINE PHOSPHATASE 71 U/L (38-126); ANION GAP 13 (5-19); ASPARTATE AMINO TRANSFERASE 45 U/L (14-36); BILIRUBIN,DIRECT 0.2 mg/dL (0.0-0.4); BILIRUBIN,TOTAL 0.3 mg/dL (0.2-1.3); BLOOD UREA NITROGEN 8 mg/dL (7-20); CALCIUM 9.1 mg/dL (8.4-10.2); CARBON DIOXIDE 20 mmol/L (22-30); CHLORIDE 105 mmol/L (98-107); GLUCOSE 118 mg/dL (75-110); POTASSIUM 3.9 mmol/L (3.6-5.0); TOTAL PROTEIN 7.6 g/dL (6.3-8.2)
--- NOTE | 2020-01-08 23:30 | ER Document Report ---
ED Respiratory Problem - General Chief Complaint: Breathing Difficulty Stated Complaint: SHORTNESS OF BREATH Time Seen by Provider: 01/08/20 20:55 Mode of Arrival: Ambulatory TRAVEL OUTSIDE OF THE [place] IN LAST 30 DAYS: No - HPI Notes: Patient is a 34-year-old female with a past medical history of asthma who presents with shortness of breath. Patient was diagnosed with Covid recently. She states that she began having symptoms on December 29 after annie it from the [employer]. Patient had lost her sense of taste and smell but this returned. Her symptoms initially started with a sore throat but that has resolved. She states that she thought she was doing better but today, she has felt winded. She states she feels like she cannot catch her breath. She has been using her inhalers which has been helping. She did have chest pressure several days ago but this resolved. She denies any fevers. No abdominal pain. No nausea or vomiting. No urinary symptoms. She has never had a blood clot before. Does have a Nexplanon. - Related Data Allergies/Adverse Reactions: Cat/Feline Product Derivatives * [Cat/Feline Product Derivatives] Allergy (Severe, Verified 03/23/18 10:49) Respiratory distress grass pollen-orchard grass, standard [grass pollen-orchard grass,std] Allergy (Severe, Verified 03/23/18 10:49) Respiratory distress tree nut [Tree Nut] Allergy (Severe, Verified 03/23/18 10:49) Respiratory distress No Known Drug Allergies Allergy (Verified 03/23/18 10:49) dogs Allergy (Severe, Uncoded 03/23/18 10:49) Respiratory distress pecan trees Allergy (Severe, Uncoded 03/23/18 10:49) Respiratory distress Home Medications: albuteral inhaler, singulair, flonase Past Medical History - General Information source: Patient - Social History Smoking Status: Never Smoker Frequency of alcohol use: Rare Drug Abuse: None Family History: Reviewed & Not Pertinent Patient has homicidal ideation: No Pulmonary Medical History: Reports: Hx Asthma Renal/ Medical History: Denies: Hx Peritoneal Dialysis Past Surgical History: Reports: Hx Orthopedic Surgery - left knee x2 - Immunizations Hx Diphtheria, Pertussis, Tetanus Vaccination: Yes Review of Systems - Review of Systems Notes: CONSTITUTIONAL: No fever, fatigue or weight loss. SKIN: No rash. HENT: No congestion, ear pain, or sore throat. EYES: No recent vision problems or eye pain. ENDOCRINE: No thyroid problems. No polyuria or polydipsia. CARDIOVASCULAR: No chest pain or edema. RESPIRATORY: No cough, congestion, or wheezing. Positive for shortness of breath. GASTROINTESTINAL: No abdominal pain, nausea, vomiting, bloody stools or diarrhea. GENITOURINARY: No dysuria. MUSCULOSKELETAL: No joint pain or swelling. LYMPHATIC: No swollen glands. NEUROLOGIC: No seizures. No headache, focal weakness or sensory changes. HEMATOLOGIC: No unusual bruising or bleeding. PSYCHIATRIC: No depression or anxiety. Physical Exam - Vital signs Vitals: Temp Pulse Resp BP Pulse Ox 99.9 F 107 H 24 H 135/72 H 95 01/08/20 20:48 01/08/20 20:48 01/08/20 20:48 01/08/20 20:48 01/08/20 20:48 - General General appearance: Appears well Notes: VITAL SIGNS: Within normal limits. GENERAL: No acute distress, non-toxic appearance. HEAD: Normal with no signs of head trauma. EYES: EOMI, conjunctiva normal, no discharge. EARS: Hearing grossly intact. NECK: Normal range of motion, no tenderness, supple, no lymphadenopathy, No adenopathy, no JVD. CHEST: Clear breath sounds bilaterally. No wheezes, rales, or rhonchi. CARDIAC: Regular rate and rhythm. S1 and S2, without murmurs, gallops, or rubs. VASCULAR: No Edema. ABDOMEN: Normal and soft with no tenderness GENITOURINARY: Normal, No tenderness MUSCULOSKELETAL: Good range of motion of all major joints. Extremities without clubbing, cyanosis or edema. NEUROLOGICAL: Alert and oriented x 3. No focal sensory or strength deficits. Speech normal. Follows commands appropriately. PSYCHIATRIC: Normal Affect, judgement and mood. SKIN: Normal appearance with no rashes or lesions. Course - Re-evaluation Re-evalutation: 01/08/20 23:29 Patient appears well on exam. She was mildly tachycardic. She is not having any chest pain. Is having good O2 saturations on room air and ambulation. Patient has an elevated D-dimer. She has several risk factors for PE including control and Covid infection. Was initially tachycardic upon arrival. CTA was ordered. Unfortunately, the bolus was non diagnostic and I am unable determine if she has a PE or not. I discussed all this with the patient and offered admission for repeat CT after 24 hours. Patient was very agreeable to this. Started on prednisone as she states that she is having shortness of breath. 01/09/20 04:53 - Vital Signs Vital signs: Temp Pulse Resp BP Pulse Ox 99.1 F 85 16 135/69 H 98 01/09/20 03:30 01/09/20 03:05 01/09/20 03:05 01/09/20 03:05 01/09/20 03:05 - Laboratory Result Diagrams: 01/08/20 22:55 01/08/20 22:55 Laboratory results interpreted by me: 01/08/20 01/08/20 01/08/20 22:55 22:55 22:55 RDW 14.1 H D-Dimer 0.64 H Carbon Dioxide 20 L Glucose 118 H AST 45 H - Diagnostic Test Radiology reviewed: Image reviewed, Reports reviewed - EKG Interpretation by Hi EKG shows normal: Sinus rhythm Rate: Normal Rhythm: NSR When compared to previous EKG there are: Previous EKG unavailable Additional EKG results interpreted by me: 01/08/20 23:31 Sinus rhythm at a rate of 91. QTc 448. No acute ST changes. No previous EKG available for comparison. Discharge - Discharge Clinical Impression: Shortness of breath, COVID-19 Condition: Stable Disposition: ADMITTED OBSERVATION Admitting Provider: [facility] Unit Admitted: Medical Floor
--- NOTE | 2020-01-09 02:28 | RADIOLOGY REPORT (SQ) ---
CLINICAL INDICATION: sob, covid 19, elevated dimer 0.64, HCG NEG, CREAT 0.71. . TECHNIQUE: CT arteriography was obtained of the chest with multiplanar MIP and/or 3-D angiographic reconstructions. This exam was performed according to our departmental dose-optimization program, which includes automated exposure control, adjustment of the mA and/or kV according to patient size and/or use of iterative reconstruction techniques. COMPARISON: None. CORRELATION: Chest radiography January 08, 2020. FINDINGS: Dilute and in adequate contrast bolus. Average Hounsfield unit measurement within main pulmonary artery segment of 102. Artifact from venous opacification. There is a dilute contrast bolus. Examination is nondiagnostic for the evaluation of pulmonary embolus. Thoracic aorta is of normal caliber. The heart is of normal size. No pericardial effusion. No bulky mediastinal adenopathy. The lungs demonstrate mild patchy areas of interstitial prominence, bilaterally. Presumed infectious inflammatory. No effusion. No pneumothorax. Visualized abdominal contents are unremarkable. Visualized bones are unremarkable. IMPRESSION: Dilute contrast bolus. Examination is nondiagnostic for the evaluation of pulmonary embolus. Mild patchy areas of interstitial lung disease scattered bilaterally. Presumed infectious inflammatory .
[2020-01-09] MEDS ORDERED: PREDNISONE 20 MG TABLET PO ONE (03:08)
[2020-01-09] MEDS ORDERED: ONDANSETRON HCL INJ/PF 4 MG/2 ML SDV IV PRN (04:35)
[2020-01-09] MEDS ORDERED: ACETAMINOPHEN 325 MG TABLET PO PRN (04:35)
[2020-01-09] MEDS ORDERED: ALBUTEROL SULFATE HFA (90 MCG/PUFF) 8 GM MDI IH PRN (04:47)
[2020-01-09] MEDS ORDERED: ENOXAPARIN SODIUM INJ 150 MG/1 ML DISP.SYRIN SUBCUT SCH (05:00)
--- NOTE | 2020-01-09 05:08 | PDOC H&P ---
History of Present Illness Admission Date/PCP: 01/09/20 04:26 VALERIE SEVILLA DO Patient complains of: Chest pain, shortness of breath History of Present Illness: MARTY AGUIRRE is a 34 year old female with a history of asthma and obesity who was diagnosed with COVID-19 10 days back presents to the ED reporting shortness of breath and chest pain with deep breathing. Patient reports that she had low- grade fever, body aches and sore throat when she was first diagnosed with COVID- 19. Over the last week most of her symptoms have been resolving but she contin ues to have mild shortness of breath which is associated with substernal pressure type chest pain when taking a deep breath. Patient denies cough, runny nose, nausea, vomiting, diarrhea. At the ED patient had stable vital signs, saturating 98% on room air. Labs were unremarkable except mildly elevated D- dimer. CTA chest was done rule out PE but the contrast that was given was diluted and the study was nondiagnostic for PE. As the study cannot be repeated in the within 24 hours patient is admitted for closer observation and empiric therapy until she gets a repeat CTA done to rule out PE. Past Medical History Pulmonary Medical History: Reports: Asthma Past Surgical History Past Surgical History: Reports: Orthopedic Surgery - left knee x2 Social History Information Source: Patient Lives with: Family Smoking Status: Never Smoker Frequency of Alcohol Use: None Drugs: None - Advance Directive Resuscitation Status: Full Code Family History Family History: Reviewed & Not Pertinent Parental Family History Reviewed: Yes Children Family History Reviewed: Yes Sibling(s) Family History Reviewed.: Yes Medication/Allergy Home Medications: Metronidazole 500 mg PO BID #14 tablet 03/21/17 Nitrofurantoin Monohyd/M-Cryst [Macrobid 100 mg Capsule] 100 mg PO BID #14 capsule 03/21/17 Albuterol Sulfate [Albuterol Sulfate 2.5mg/3 mL] 1 vial IH Q4 PRN #30 vial 07/06/17 Albuterol Sulfate [Proair HFA Inhalation Aerosol 8.5 gm MDI] 2 puff IH Q4H PRN #1 mdi 07/06/17 Azithromycin [Zithromax 250 mg Tablet] 250 mg PO ASDIR PRN #6 tablet 07/06/17 Fluticasone Propionate [Flonase Nasal [place] 50 Mcg/[place] 16 gm] 2 sprays NASL Q12 #1 inhaler 07/06/17 Naproxen [Naprosyn 250 Nmg Tablet] 1 tab PO BID #14 tablet 03/23/18 Omeprazole Magnesium [Prilosec Otc] 20 mg PO DAILY #15 tablet. 03/23/18 Diclofenac Sodium [Voltaren 50 Mg Tablet.] 50 mg PO BID #20 tablet. 12/08/19 Allergies/Adverse Reactions: Cat/Feline Product Derivatives * [Cat/Feline Product Derivatives] Allergy (Severe, Verified 03/23/18 10:49) Respiratory distress grass pollen-orchard grass, standard [grass pollen-orchard grass,std] Allergy (Severe, Verified 03/23/18 10:49) Respiratory distress tree nut [Tree Nut] Allergy (Severe, Verified 03/23/18 10:49) Respiratory distress No Known Drug Allergies Allergy (Verified 03/23/18 10:49) dogs Allergy (Severe, Uncoded 03/23/18 10:49) Respiratory distress pecan trees Allergy (Severe, Uncoded 03/23/18 10:49) Respiratory distress Review of Systems Constitutional: PRESENT: fever(s). ABSENT: chills, headache(s), weight gain, weight loss Eyes: ABSENT: visual disturbances Ears: ABSENT: hearing changes Cardiovascular: PRESENT: as per HPI Respiratory: PRESENT: as per HPI Gastrointestinal: ABSENT: abdominal pain, constipation, diarrhea, hematemesis, hematochezia, nausea, vomiting Genitourinary: ABSENT: dysuria, hematuria Musculoskeletal: ABSENT: joint swelling Integumentary: ABSENT: rash, wounds Neurological: ABSENT: abnormal gait, abnormal speech, confusion, dizziness, focal weakness, syncope Psychiatric: ABSENT: anxiety, depression, homidical ideation, suicidal ideation Endocrine: ABSENT: cold intolerance, heat intolerance, polydipsia, polyuria Hematologic/Lymphatic: ABSENT: easy bleeding, easy bruising Physical Exam Vital Signs: Temp Pulse Resp BP Pulse Ox 99.1 F 85 16 135/69 H 98 01/09/20 03:30 01/09/20 03:05 01/09/20 03:05 01/09/20 03:05 01/09/20 03:05 Intake & Output 01/07/20 01/08/20 01/09/20 06:59 06:59 06:59 Weight 148 kg Additional comments: GENERAL APPEARANCE: Alert and oriented x3, in no acute distress HEENT: Normocephalic and atraumatic. No scleral icterus. Moist oral mucosa NECK: Supple. No lymphadenopathy or tenderness. No carotid bruit. No JVD CHEST: Symmetric. Nontender to palpation. LUNGS: Clear with good air entry bilaterally. No wheezing or crackles HEART: Regular rate and rhythm with normal S1 and S2. No murmurs, gallops, or rubs. ABDOMEN: Flat, soft, active bowel sounds, no direct or rebound tenderness. No organomegaly detected. No CVA tenderness EXTREMITIES: No cyanosis, clubbing, or edema. MUSCULOSKELETAL: No deformity, atrophy or swelling noted PSYCHIATRIC: Recent and remote memory is intact. Appropriate mood and affect. SKIN: Warm, dry, and well perfused. No lesions or rashes are noted. NEUROLOGIC: No focal sensory or motor deficits are noted. Results Laboratory Results: 01/08/20 22:55 01/08/20 22:55 01/08/20 01/08/20 01/08/20 22:55 22:55 22:55 WBC 7.0 RBC 4.61 Hgb 12.8 Hct 38.3 MCV 83 MCH 27.8 MCHC 33.5 RDW 14.1 H Plt Count 276 Seg Neutrophils % 74.4 Sodium 138.2 Potassium 3.9 Chloride 105 Carbon Dioxide 20 L Anion Gap 13 BUN 8 Creatinine 0.71 Est GFR ( Amer) > 60 Glucose 118 H Calcium 9.1 Total Bilirubin 0.3 AST 45 H Alkaline Phosphatase 71 Total Protein 7.6 Albumin 4.1 Serum HCG, Qual NEGATIVE 01/08/20 22:55 Troponin I < 0.012 Impressions: Chest X-Ray 01/08/20 21:00 IMPRESSION: No pulmonary opacities identified. Please note that chest radiographs have low sensitivity for subtle groundglass opacities. Chest/Abdomen CTA 01/08/20 23:31 IMPRESSION: Dilute contrast bolus. Examination is nondiagnostic for the evaluation of pulmonary embolus. Mild patchy areas of interstitial lung disease scattered bilaterally. Presumed infectious inflammatory . Assessment and Plan - Diagnosis (1) Elevated d-dimer Is this a current diagnosis for this admission?: Yes Plan: Patient has a confirmed COVID-19 infection She is at increased risk for PE D-dimer was elevated at the ED CTA was nonconclusive for PE due to a dilated contrast Empirically started on her on therapeutic Lovenox Repeat CTA chest in 24 hours per radiology recommendation Will continue to closely monitor respiratory parameters (2) COVID-19 virus infection Is this a current diagnosis for this admission?: Yes Plan: Patient was diagnosed 10 days back Currently most of her symptoms are improving Saturating well on room air Continue supportive care Started her on vitamin C, vitamin D and zinc (3) Asthma Is this a current diagnosis for this admission?: Yes Plan: Stable, currently new not in acute exacerbation Continue albuterol and Singulair (4) Morbid obesity with BMI of 50.0-59.9, adult Is this a current diagnosis for this admission?: Yes Plan: Encouraged dietary change and regular exercise - Time Time Spent with patient: 35 or more minutes Total Critical Time (Minutes): 40 Medications reviewed and adjusted accordingly: Yes Anticipated Discharge Disposition: Home, Self Care Anticipated Discharge Timeframe: within 48 hours - Inpatient Certification Based on my medical assessment, after consideration of the patient's comorbi dities, presenting symptoms, or acuity I expect that the services needed warrant INPATIENT care.: Yes I certify that my determination is in accordance with my understanding of Medicare's requirements for reasonable and necessary INPATIENT services [42 CFR 412.3e].: Yes Medical Necessity: Need Close Monitoring Due to Risk of Patient Decompensation, Risk of Complication if Not Cared For in Hospital Post Hospital Care: D/C or Transfer Summary
[2020-01-09 07:47] LABS: C-REACTIVE PROTEIN 17.3 mg/L (<10.0)
[2020-01-09 08:17] LABS: FERRITIN 58.9 ng/mL (6.2-137.0)
[2020-01-09 08:45] VITALS: BP 155/85
[2020-01-09] MEDS ORDERED: FAMOTIDINE 20 MG TABLET PO SCH (10:00)
[2020-01-09] MEDS ORDERED: ASCORBIC ACID 500 MG TABLET PO SCH (10:00)
[2020-01-09] MEDS ORDERED: CHOLECALCIFEROL (D3) 1,000 UNIT (25 MCG) TABLET PO SCH (10:00)
[2020-01-09] MEDS ORDERED: ZINC SULFATE 220 MG CAPSULE PO SCH (10:00)
--- NOTE | 2020-01-09 18:59 | PDOC DISCHARGE SUMMARY ---
Impression - Admit/DC Date/PCP Admission Date/Primary Care Provider: 01/09/20 04:26 VALERIE SEVILLA DO Discharge Date: 01/09/20 - Discharge Diagnosis (1) Asthma Is this a current diagnosis for this admission?: Yes (2) COVID-19 virus infection Is this a current diagnosis for this admission?: Yes (3) Elevated d-dimer Is this a current diagnosis for this admission?: Yes (4) Morbid obesity with BMI of 50.0-59.9, adult Is this a current diagnosis for this admission?: Yes - Additional Information Resuscitation Status: Full Code Discharge Diet: Cardiac, Diabetic Discharge Activity: Activity As Tolerated, Balance Activity w/Rest, Slowly Increase Activity Referrals: VALERIE SEVILLA DO [Primary Care Provider] - (Follow up within 1 week.) Prescriptions: Prednisone [Deltasone 20 mg Tablet] 20 mg PO ASDIR PRN #20 tablet PRN Reason: Home Medications: Albuterol Sulfate [Albuterol Sulfate Hfa] 2 puff IH Q6HP PRN 01/09/20 Fluticasone/Umeclidin/Vilanter [Trelegy 100-62.5-25 Mcg Ellipta 14 Dose/Dpi] 1 puff IH DAILY 01/09/20 Prednisone [Deltasone 20 mg Tablet] 20 mg PO ASDIR PRN #20 tablet 01/09/20 History of Present Illiness History of Present Illness: Per H&P by Dr. Moura: MARTY AGUIRRE is a 34 year old female with a history of asthma and obesity who was diagnosed with COVID-19 10 days back presents to the ED reporting shortness of breath and chest pain with deep breathing. Patient reports that she had low-grade fever, body aches and sore throat when she was first diagnosed with COVID-19. Over the last week most of her symptoms have been resolving but she continues to have mild shortness of breath which is associated with substernal pressure type chest pain when taking a deep breath. Patient denies cough, runny nose, nausea, vomiting, diarrhea. At the ED patient had stable vital signs, saturating 98% on room air. Labs were unremarkable except mildly elevated D-dimer. CTA chest was done rule out PE but the contrast that was given was diluted and the study was nondiagnostic for PE. As the study cannot be repeated in the within 24 hours patient is admitted for closer observation and empiric therapy until she gets a repeat CTA done to rule out PE. Hospital Course Hospital Course: The patient was diagnosed with COVID-19 team 01/05/20 and had been recuperating at home without much difficulty. She does note increased fatigue occasional shortness of breath with activity but otherwise generally benign symptoms. She presented to the emergency department due to development of pleuritic chest pain not responsive to Tylenol. She does confirm that she only feels discomfort upon taking a deep breath or during a cough. Evaluation in the emergency department is essentially unremarkable. Vital signs were stable and the patient was noted to maintain oxygen saturations in the mid to high 90s while ambulatory on room air. CBC and chemistry were reassuring. As expected, the patient's D-dimer was elevated to 0.64, CRP 17.3, and CK 217. Ferritin and LDH were normal. CTA of the chest reveals bilateral, mild patchy opacities but otherwise is negative for acute findings. Unfortunately, the contrast was diluted and so evaluation for pulmonary embolus could not be completed. Although d-dimer was elevated, there is no concern for pulmonary embolus as this was an expected finding given her body habitus and covid positive status. Therefore, repeat CTA is not necessary. The patient was observed for a period to ensure that her vital signs remained stable. On exam this morning, she states that she is feeling improved, has been ambulatory on room air, and is comfortable with discharge to home with self care. She is discharged in stable condition. She is advised on CDC guidelines for continued home quarantine. We discussed red flags that should prompt her to return to the emergency department for further evaluation and care. Physical Exam Vital Signs: Temp Pulse Resp BP Pulse Ox 98.8 F 74 18 155/85 H 97 01/09/20 08:43 01/09/20 08:43 01/09/20 08:43 01/09/20 08:43 01/09/20 08:43 Intake & Output 01/08/20 01/09/20 01/10/20 06:59 06:59 06:59 Intake Total 270 Balance 270 Weight 148 kg General appearance: PRESENT: no acute distress, cooperative, morbidly obese, well-developed, well-nourished Head exam: PRESENT: atraumatic, normocephalic Eye exam: PRESENT: conjunctiva pink, EOMI, PERRLA. ABSENT: scleral icterus Mouth exam: PRESENT: moist, tongue midline Respiratory exam: PRESENT: clear to auscultation omari, symmetrical, unlabored, other - Room air. ABSENT: rales, rhonchi, wheezes Cardiovascular exam: PRESENT: RRR. ABSENT: diastolic murmur, rubs, systolic murmur Pulses: PRESENT: normal dorsalis pedis pul Vascular exam: PRESENT: normal capillary refill Extremities exam: PRESENT: full ROM. ABSENT: calf tenderness, clubbing, pedal edema Musculoskeletal exam: PRESENT: ambulatory - On room air Neurological exam: PRESENT: alert, awake, oriented to person, oriented to place, oriented to time, oriented to situation, CN II-XII grossly intact. ABSENT: motor sensory deficit Psychiatric exam: PRESENT: appropriate affect, normal mood. ABSENT: homicidal ideation, suicidal ideation Skin exam: PRESENT: dry, intact, warm. ABSENT: cyanosis, rash Results Laboratory Results: WBC 7.0 10^3/uL (4.0-10.5) 01/08/20 22:55 RBC 4.61 10^6/uL (3.72-5.28) 01/08/20 22:55 Hgb 12.8 g/dL (12.0-15.5) 01/08/20 22:55 Hct 38.3 % (36.0-47.0) 01/08/20 22:55 MCV 83 fl (80-97) 01/08/20 22:55 MCH 27.8 pg (27.0-33.4) 01/08/20 22:55 MCHC 33.5 g/dL (32.0-36.0) 01/08/20 22:55 RDW 14.1 % (11.5-14.0) H 01/08/20 22:55 Plt Count 276 10^3/uL (150-450) 01/08/20 22:55 Lymph % (Auto) 19.5 % (13-45) 01/08/20 22:55 [place] % (Auto) 5.2 % (3-13) 01/08/20 22:55 Eos % (Auto) 0.2 % (0-6) 01/08/20 22:55 Baso % (Auto) 0.7 % (0-2) 01/08/20 22:55 Absolute Neuts (auto) 5.2 10^3/uL (1.7-8.2) 01/08/20 22:55 Absolute Lymphs (auto) 1.4 10^3/uL (0.5-4.7) 01/08/20 22:55 Absolute Monos (auto) 0.4 10^3/uL (0.1-1.4) 01/08/20 22:55 Absolute Eos (auto) 0.0 10^3/uL (0.0-0.6) 01/08/20 22:55 Absolute Basos (auto) 0.0 10^3/uL (0.0-0.2) 01/08/20 22:55 Seg Neutrophils % 74.4 % (42-78) 01/08/20 22:55 D-Dimer 0.64 ug/mL (0.00-0.50) H 01/08/20 22:55 Sodium 138.2 mmol/L (137-145) 01/08/20 22:55 Potassium 3.9 mmol/L (3.6-5.0) 01/08/20 22:55 Chloride 105 mmol/L (98-107) 01/08/20 22:55 Carbon Dioxide 20 mmol/L (22-30) L 01/08/20 22:55 Anion Gap 13 (5-19) 01/08/20 22:55 BUN 8 mg/dL (7-20) 01/08/20 22:55 Creatinine 0.71 mg/dL (0.52-1.25) 01/08/20 22:55 Est GFR ( Amer) > 60 (>60) 01/08/20 22:55 Est GFR (MDRD) Non-Af > 60 (>60) 01/08/20 22:55 Glucose 118 mg/dL (75-110) H 01/08/20 22:55 Calcium 9.1 mg/dL (8.4-10.2) 01/08/20 22:55 Ferritin 58.90 ng/mL (6.2-137.0) 01/09/20 07:00 Total Bilirubin 0.3 mg/dL (0.2-1.3) 01/08/20 22:55 Direct Bilirubin 0.2 mg/dL (0.0-0.4) 01/08/20 22:55 Neonat Total Bilirubin Not Reportable 01/08/20 22:55 Neonat Direct Bilirubin Not Reportable 01/08/20 22:55 Neonat Indirect Bili Not Reportable 01/08/20 22:55 AST 45 U/L (14-36) H 01/08/20 22:55 ALT 33 U/L (<35) 01/08/20 22:55 Alkaline Phosphatase 71 U/L (38-126) 01/08/20 22:55 Lactate Dehydrogenase 245 U/L (120-246) 01/09/20 07:00 Creatine Kinase 217 U/L (30-135) H 01/09/20 07:00 Troponin I < 0.012 ng/mL 01/08/20 22:55 C-Reactive Protein 17.3 mg/L (<10.0) H 01/09/20 07:00 Total Protein 7.6 g/dL (6.3-8.2) 01/08/20 22:55 Albumin 4.1 g/dL (3.5-5.0) 01/08/20 22:55 Serum HCG, Qual NEGATIVE (NEGATIVE) 01/08/20 22:55 01/08/20 22:55 Troponin I < 0.012 Impressions: Chest X-Ray 01/08/20 21:00 IMPRESSION: No pulmonary opacities identified. Please note that chest radiographs have low sensitivity for subtle groundglass opacities. Chest/Abdomen CTA 01/08/20 23:31 IMPRESSION: Dilute contrast bolus. Examination is nondiagnostic for the evaluation of pulmonary embolus. Mild patchy areas of interstitial lung disease scattered bilaterally. Presumed infectious inflammatory . Plan Plan of Treatment: Patient is discharged home in stable condition. She is advised follow-up with her primary care provider within 1 week. She is educated on COVID-19 quarantine guidelines. She is instructed to take her medications as prescribed. She is encouraged to return to the emergency department, as needed, for concerning symptoms. Time Spent: Greater than 30 Minutes Stroke Is this a Stroke Patient?: No Acute Heart Failure Is this a Heart Failure Patient?: No
[2020-01-10] MEDS ORDERED: INFLUENZA QUAD (6MOS+) 2020-21 VAC 0.5 ML SYR IM ONE (08:00)
--- NOTE | 2020-01-15 23:01 | EKG REPORT ---
SEVERITY:- BORDERLINE ECG - SINUS RHYTHM PROBABLE LEFT ATRIAL ABNORMALITY BORDERLINE T ABNORMALITIES, DIFFUSE LEADS : Confirmed by: Bruno Medina MD 15-Jan-2020 23:01:22
== END 2020-01-09 09:15 | disposition home or self-care (01) ==
LOC: ER 19:45 → EH 01-09 04:26
PROVIDERS: ADMIT Student in an Organized Health Care Education/Training Program; ATTEND Registered Nurse
DX: J45.909 Unspecified asthma, uncomplicated (principal); U07.1 COVID-19; R79.89 Other specified abnormal findings of blood chemistry; E66.01 Morbid (severe) obesity due to excess calories; Z68.43 Body mass index [BMI] 50.0-59.9, adult; R06.02 Shortness of breath; R07.81 Pleurodynia; R53.83 Other fatigue; Z79.899 Other long term (current) drug therapy
CPT/HCPCS: 93005; 99285; 96372; 36415 ×2; 82550; 82728; 83615; 84703; 85025; 86140; 80053; 84484; 85379; 71045; 71275; 93010; J1650; J7512